=== PATIENT | male | born 1950 | race Caucasian/White ===

== ENCOUNTER 2017-09-28 11:55 | Observation (INO) | payer OTHER ==
[~2017-09-28] VITALS: Ht 167.6 cm; Wt 70.5 kg
[~2017-09-28 11:55] MED LIST: LISI10TA PO; SIMV20TA2 PO
--- NOTE | 2017-09-28 13:21 | DIAGNOSTIC IMAGING REPORT ---
SINGLE VIEW CHEST CLINICAL HISTORY: Dyspnea. FINDINGS: An AP, portable, upright chest radiograph is obtained. No prior studies are available for comparison at the time of dictation. The examination is degraded by portable technique and patient rotation. The cardiomediastinal silhouette is unremarkable. There is mild bibasilar atelectasis. No airspace consolidation or large pleural effusion is identified. No pneumothorax is seen. The bony thorax is grossly intact. IMPRESSION: No acute cardiopulmonary abnormality. Electronically signed by: Abhilash Paz M.D. 09/28/2017 1:20 PM Dictated Date/Time: 09/28/2017 1:19 PM
[2017-09-28 13:25] LABS: BASO % 0.3 %; BASO ABS # 0.03 K/uL (0-0.2); EOS ABS # 0.09 K/uL (0-0.5); HEMOGLOBIN 15.9 g/dL (14.0-18.0); IG# 0.03 K/uL (0.00-0.02); LYMPH % 15.1 %; LYMPH ABS # 1.33 K/uL (1.2-3.4); MEAN CORPUSCULAR HEMOGLOBIN 31.5 pg (25-34); MEAN CORPUSCULAR HGB CONC 33.1 g/dl (32-36); MEAN PLATELET VOLUME 10.2 fL (7.4-10.4); MONO % 5.3 %; MONO ABS # 0.47 K/uL (0.11-0.59); NEUT ABS # 6.88 K/uL (1.4-6.5); PLATELET COUNT 187 K/uL (130-400); RED CELL DISTRIBUTION WIDTH CV 13.7 % (11.5-14.5); RED CELL DISTRIBUTION WIDTH SD 46.8 fL (36.4-46.3); WHITE BLOOD COUNT 8.83 K/uL (4.8-10.8)
[2017-09-28 13:46] LABS: BLOOD UREA NITROGEN 23 mg/dl (7-18); CALCIUM 9.3 mg/dl (8.5-10.1); CARBON DIOXIDE 23 mmol/L (21-32); CREATININE 1.01 mg/dl (0.60-1.40); GLUCOSE 114 mg/dl (70-99); POTASSIUM 4.4 mmol/L (3.5-5.1); SODIUM 140 mmol/L (136-145)
--- NOTE | 2017-09-28 13:49 | EMERGENCY ROOM VISIT NOTE ---
History Report prepared by Roberta: Izabela Bridges Under the Supervision of: Dr. Abhilash Preciado M.D. First contact with patient: 12:39 Chief Complaint: SHORTNESS OF BREATH Stated Complaint: SOB History of Present Illness The patient is a 67 year old male who presents to the Emergency Room with complaints of intermittent shortness of breath with exertion that started several days ago. The patient reports he usually feels better a few seconds after resting but this morning he notes it took closer to a few minutes. He states he noticed he was anxious and had cramping in his hands this morning. He reports he feels like his heart rate has increased but does not feel like it is "racing". 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 He notes he was in the ED ten years ago for similar symptoms but his results were negative. He states he was told he had acid reflux. He reports he noticed heart burn this morning after eating breakfast but it went away after he burped. He states he went to the basement 30 minutes later and noticed he was short of breath when coming back up the stairs. He denies chest pain, sweating, or nausea. The patient states he normally jogs about 1 mile every morning and has noticed he has been more short of breath the last few weeks. He denies any recent travels or surgeries. He states he was diagnosed with bladder cancer in 2013 but reports it is well resolved. He notes he gets a CT for the bladder cancer every year and his most recent one was 3 weeks ago. He denies a history of blood clots in his lungs or legs. Source of History: patient Onset: several days ago Timing: intermittent Modifying Factors (Worsening): exertion Associated Symptoms: No diaphoresis, No chest pain, No nausea Review of Systems See HPI for pertinent positives & negatives. A total of 10 systems reviewed and were otherwise negative. Past Medical & Surgical Medical Problems: (1) Bladder cancer (2) Dyslipidemia (3) HTN (hypertension) Bladder cancer. Social History Smoking Status: Never Smoker Current/Historical Medications Scheduled Aspirin (Aspirin EC Low Dose), 81 MG PO DAILY Lisinopril (Prinivil), 10 MG PO DAILY Simvastatin (Zocor), 20 MG PO QPM Allergies Coded Allergies: Scallop (Verified Adverse Reaction, Severe, n/v, 07/22/14) Physical Exam Vital Signs Date Time Temp Pulse Resp B/P (MAP) Pulse Ox O2 Delivery O2 Flow Rate FiO2 09/28/17 15:00 97 20 95 Room Air 09/28/17 13:42 93 Room Air 09/28/17 13:42 86 14 138/88 96 Room Air 09/28/17 13:41 Room Air 09/28/17 13:37 94 09/28/17 11:58 36.3 98 18 165/92 96 Room Air Physical Exam GENERAL: Patient is in no acute distress. HEENT: No acute trauma, normocephalic atraumatic, mucous membranes moist, no nasal congestion, no scleral icterus. NECK: No stridor, no adenopathy, no meningismus, trachea is midline. LUNGS: Clear to auscultation bilaterally, no wheeze, no rhonchi, breath sounds equal. HEART: Without murmurs gallops or rubs, regular rate and rhythm. ABDOMEN: Soft, nontender, bowel sounds positive, no hernias, no peritonitis. EXTREMITIES: No cyanosis or edema, full range of motion of all the joints without pain or difficulty, no signs for acute trauma. NEUROLOGIC: Oriented x 3, no acute motor or sensory deficits, no focal weakness. SKIN: No rash, no jaundice, no diaphoresis. Medical Decision & Procedures ER Provider Diagnostic Interpretation: Radiology results as stated below per my review and radiologist interpretation: SINGLE VIEW CHEST CLINICAL HISTORY: Dyspnea. FINDINGS: An AP, portable, upright chest radiograph is obtained. No prior studies are available for comparison at the time of dictation. The examination is degraded by portable technique and patient rotation. The cardiomediastinal silhouette is unremarkable. There is mild bibasilar atelectasis. No airspace consolidation or large pleural effusion is identified. No pneumothorax is seen. The bony thorax is grossly intact. IMPRESSION: No acute cardiopulmonary abnormality. Electronically signed by: Abhilash Paz M.D. 09/28/2017 1:20 PM Dictated Date/Time: 09/28/2017 1:19 PM Laboratory Results 09/28/17 13:10 Red Blood Count 5.05, Mean Corpuscular Volume 95.0, Mean Corpuscular Hemoglobin 31.5, Mean Corpuscular Hemoglobin Concent 33.1, Mean Platelet Volume 10.2, Neutrophils (%) (Auto) 78.0, Lymphocytes (%) (Auto) 15.1, Monocytes (%) (Auto) 5.3, Eosinophils (%) (Auto) 1.0, Basophils (%) (Auto) 0.3, Neutrophils # (Auto) 6.88, Lymphocytes # (Auto) 1.33, Monocytes # (Auto) 0.47, Eosinophils # (Auto) 0.09, Basophils # (Auto) 0.03 09/28/17 13:10 Test 09/28/17 13:10 White Blood Count 8.83 K/uL (4.8-10.8) Red Blood Count 5.05 M/uL (4.7-6.1) Hemoglobin 15.9 g/dL (14.0-18.0) Hematocrit 48.0 % (42-52) Mean Corpuscular Volume 95.0 fL (80-100) Mean Corpuscular Hemoglobin 31.5 pg (25-34) Mean Corpuscular Hemoglobin Concent 33.1 g/dl (32-36) Platelet Count 187 K/uL (130-400) Mean Platelet Volume 10.2 fL (7.4-10.4) Neutrophils (%) (Auto) 78.0 % Lymphocytes (%) (Auto) 15.1 % Monocytes (%) (Auto) 5.3 % Eosinophils (%) (Auto) 1.0 % Basophils (%) (Auto) 0.3 % Neutrophils # (Auto) 6.88 K/uL (1.4-6.5) Lymphocytes # (Auto) 1.33 K/uL (1.2-3.4) Monocytes # (Auto) 0.47 K/uL (0.11-0.59) Eosinophils # (Auto) 0.09 K/uL (0-0.5) Basophils # (Auto) 0.03 K/uL (0-0.2) RDW Standard Deviation 46.8 fL (36.4-46.3) RDW Coefficient of Variation 13.7 % (11.5-14.5) Immature Granulocyte % (Auto) 0.3 % Immature Granulocyte # (Auto) 0.03 K/uL (0.00-0.02) Prothrombin Time 10.0 SECONDS (9.0-12.0) Prothromb Time International Ratio 1.0 (0.9-1.1) Activated Partial Thromboplast Time 24.0 SECONDS (21.0-31.0) Partial Thromboplastin Ratio 0.9 D-Dimer 350 ug/L FEU (0-500) Anion Gap 6.0 mmol/L (3-11) Est Creatinine Clear Calc Drug Dose 64.9 ml/min Estimated GFR () 89.4 Estimated GFR (Non- 77.1 BUN/Creatinine Ratio 22.9 (10-20) Calcium Level 9.3 mg/dl (8.5-10.1) Magnesium Level 2.3 mg/dl (1.8-2.4) Thyroid Stimulating Hormone (TSH) 2.660 uIu/ml (0.300-4.500) Laboratory results reviewed by me. ECG Per My Interpretation Indication: SOB/dyspnea Rate (beats per minute): 84 Rhythm: normal sinus Findings: no acute ischemic change, other (no PVC) ED Course 1239: The patient was evaluated in room B12A. A complete history and physical exam was performed. 1420: Discussed the patient's case with [facility] The patient will be evaluated for further management. Medical Decision Differential Diagnosis: Angina, MO, pneumonia, anemia, electrolyte imbalance, infection, bronchitis, anxiety. There is no leukocytosis or concerning anemia. No significant electrolyte abnormality, kidney failure. The patient appears to be in a euthyroid state. EKG shows a sinus rhythm, no acute ischemia. Cardiac enzyme testing 1 is not consistent with acute cardiac injury. Chest film does not show mediastinal widening, pneumonia or pneumothorax. D-dimer testing is negative. With a negative d-dimer and my low suspicion for PE, I will stop the workup for this diagnosis. Patient presents with exertional dyspnea. Things are worsening for him. He does have some cardiac risk factors. I do think a hospital stay would be warranted. Patient did take aspirin already prior to arrival, no additional aspirin administered. I spoke to the patient and case management. The on-call hospitalist was consulted. Medication Reconcilliation Current Medication List: was personally reviewed by me Blood Pressure Screening Patient's blood pressure: Elevated blood pressure (monitor by hospitalist) Consults Time Called: 1415 Consulting Physician: [facility] Returned Call: 1420 Discussed the patient's case with [facility]. The patient will be evaluated for further management. Impression Primary Impression: Shortness of breath Additional Impression: Exertional dyspnea Scribe Attestation The scribe's documentation has been prepared under my direction and personally reviewed by me in its entirety. I confirm that the note above accurately reflects all work, treatment, procedures, and medical decision making performed by me. Departure Information Dispostion Being Evaluated By Hospitalist Referrals Carmelo Boss D.O. (PCP) Patient Instructions [facility] Problem Qualifiers
--- NOTE | 2017-09-28 14:20 | History and Physical ---
History & Physical Date & Time of Service: Sep 28, 2017 at 14:19 Chief Complaint: SOB Primary Care Physician: Zhang Bell M.D. History of Present Illness Source: patient Patient is a 67-year-old male with past medical history of hypertension, hyperlipidemia, Bladder Cancer, GERD and other problems presents with history of worsening dyspnea on exertion especially since 3-4 days duration. Patient usually Jogs 1-2 miles every day but lately he gets tired even before completing one mile. This morning patient noticed to have cramping in his left arm and jaw which lasted for about few minutes. He has also noted to have dizziness with position since last few days. Reports taking 2 flights of stairs is causing shortness of breath which is very unusual for him. SOB improves with rest. Admits to taking Aspirin prior to ED visit. Last Stress test was in 2001 which was negative. He was told to have possible GERD on prior admission and he currently doesn't take any meds for GERD but has heartburn after eating breakfast this morning which improved after burping. Denies any history of chest pain, orthopnea, PND, pedal edema, diaphoresis, cough, fever, chills, headache, weakness, nausea, vomiting, abdominal pain, diarrhea, dysuria, recent change in medications. Past Medical/Surgical History HTN, HLP, Bladder Cancer Family History Father: CHF Mother:Afib Social History Smoking Status: Never Smoker Alcohol Use: socially Drug Use: none Allergies Coded Allergies: Scallop (Verified Adverse Reaction, Severe, n/v, 07/22/14) Home Medications Scheduled Aspirin (Aspirin EC Low Dose), 81 MG PO DAILY Lisinopril (Prinivil), 10 MG PO DAILY Simvastatin (Zocor), 20 MG PO QPM Review of Systems See HPI for pertinent positives & negatives. A total of 10 systems reviewed and were otherwise negative. Physical Exam Vital Signs Date Time Temp Pulse Resp B/P (MAP) Pulse Ox O2 Delivery O2 Flow Rate FiO2 09/28/17 13:42 93 Room Air 09/28/17 13:42 86 14 138/88 96 Room Air 09/28/17 13:41 Room Air 09/28/17 13:37 94 09/28/17 11:58 36.3 98 18 165/92 96 Room Air General Appearance: WD/WN, no apparent distress Head: normocephalic, atraumatic Eyes: normal inspection, PERRL, EOMI ENT: normal ENT inspection, hearing grossly normal Neck: supple, trachea midline Respiratory/Chest: chest non-tender, lungs clear, normal breath sounds, no respiratory distress, no accessory muscle use Cardiovascular: regular rate, rhythm, no edema, no murmur Abdomen/GI: normal bowel sounds, non tender, soft Back: normal inspection Extremities/Musculoskelatal: normal inspection, no pedal edema 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, no motor/sensory deficits, alert, normal mood/affect, oriented x 3 Skin: normal color, warm/dry Diagnostics Laboratory Results Results Past 24 Hours Test 09/28/17 13:10 Range/Units White Blood Count 8.83 4.8-10.8 K/uL Red Blood Count 5.05 4.7-6.1 M/uL Hemoglobin 15.9 14.0-18.0 g/dL Hematocrit 48.0 42-52 % Mean Corpuscular Volume 95.0 80-100 fL Mean Corpuscular Hemoglobin 31.5 25-34 pg Mean Corpuscular Hemoglobin Concent 33.1 32-36 g/dl Platelet Count 187 130-400 K/uL Mean Platelet Volume 10.2 7.4-10.4 fL Neutrophils (%) (Auto) 78.0 % Lymphocytes (%) (Auto) 15.1 % Monocytes (%) (Auto) 5.3 % Eosinophils (%) (Auto) 1.0 % Basophils (%) (Auto) 0.3 % Neutrophils # (Auto) 6.88 1.4-6.5 K/uL Lymphocytes # (Auto) 1.33 1.2-3.4 K/uL Monocytes # (Auto) 0.47 0.11-0.59 K/uL Eosinophils # (Auto) 0.09 0-0.5 K/uL Basophils # (Auto) 0.03 0-0.2 K/uL RDW Standard Deviation 46.8 36.4-46.3 fL RDW Coefficient of Variation 13.7 11.5-14.5 % Immature Granulocyte % (Auto) 0.3 % Immature Granulocyte # (Auto) 0.03 0.00-0.02 K/uL D-Dimer 350 0-500 ug/L FEU Sodium Level 140 136-145 mmol/L Potassium Level 4.4 3.5-5.1 mmol/L Chloride Level 111 98-107 mmol/L Carbon Dioxide Level 23 21-32 mmol/L Anion Gap 6.0 3-11 mmol/L Blood Urea Nitrogen 23 7-18 mg/dl Creatinine 1.01 0.60-1.40 mg/dl Est Creatinine Clear Calc Drug Dose 64.9 ml/min Estimated GFR () 89.4 Estimated GFR (Non- 77.1 BUN/Creatinine Ratio 22.9 10-20 Random Glucose 114 70-99 mg/dl Calcium Level 9.3 8.5-10.1 mg/dl Magnesium Level 2.3 1.8-2.4 mg/dl Troponin I < 0.015 0-0.045 ng/ml Thyroid Stimulating Hormone (TSH) 2.660 0.300-4.500 uIu/ml Diagnostic Radiology CXR: No acute cardiopulmonary abnormality. EKG EKG:Normal sinus rhythm, No signs of acute Ischemia on my Interpretation Impression Assessment and Plan Dyspnea on Exertion/Jaw Pain R/O ACS Risk factors: HTN, HLP Last Stress Test in 2001: Normal Initial troponin:Negative EKG shows:No signs of acute CXR: Unremarkable No wheezing on Exam, No H/O COPD/Asthma Trend serial cardiac enzymes Repeat EKG in AM, lipid panel Continue Aspirin, statins Oxygen PRN NPO after midnight for possible stress test Cardiology consulted TSH normal Hypertension Continue lisinopril Hyperlipidemia Continue Statins H/O Bladder Cancer S/P surgery and BCG Injections Follows with as outpatient He gets Cystoscopy every year GERD Not on meds at home Start PPI DVT Px: Lovenox SQ Code Status: Full Code Disposition: Observe in Tele Expect to discharge home when medically stable Resuscitation Status VTE Prophylaxis Will order VTE Prophylaxis: Yes
[2017-09-28] MEDS ORDERED: ONDANSETRON INJ 2 MG/ML 2 ML VIAL IV PRN (15:30)
[2017-09-28] MEDS ORDERED: ACETAMINOPHEN 325 MG TAB PO PRN (15:30)
[2017-09-28] MEDS ORDERED: NITROGLYCERIN 0.4 MG SL PER TAB CHARGE SL PRN (15:30)
[2017-09-28] MEDS ORDERED: PANTOprazole SOD 40 MG TAB PO STA (15:33)
[2017-09-28] MEDS ORDERED: ASPI-320 PO (15:38)
[2017-09-28 15:55] VITALS: O2SAT 94; Ht 167.6 cm; Wt 70.5 kg
[2017-09-28 16:13] VITALS: O2SAT 94
[2017-09-28 17:24] VITALS: BP 156/93; PULSE 82; TEMP 37; O2SAT 93
[2017-09-28 19:32] VITALS: BP 138/82; PULSE 84; TEMP 37.2; O2SAT 94
[2017-09-28] MEDS ORDERED: ENOXAPARIN 40 MG/0.4 ML SYR SC SCH (21:00)
[2017-09-28] MEDS ORDERED: SIMVASTATIN 20 MG TAB PO SCH (21:00)
[2017-09-28] MEDS ORDERED: SODIUM CHLORIDE 0.9% 1000ML 1,000 ML IV SCH (22:00)
[2017-09-28 23:57] VITALS: BP 115/90; PULSE 70; TEMP 37; O2SAT 97
[2017-09-29 05:24] VITALS: BP 128/84; PULSE 70; TEMP 36.7; O2SAT 96
[2017-09-29 07:03] LABS: HEMATOCRIT 45.5 % (42-52); HEMOGLOBIN 15.6 g/dL (14.0-18.0); MEAN CELL VOLUME 95.4 fL (80-100); MEAN CORPUSCULAR HEMOGLOBIN 32.7 pg (25-34); MEAN CORPUSCULAR HGB CONC 34.3 g/dl (32-36); MEAN PLATELET VOLUME 10.1 fL (7.4-10.4); PLATELET COUNT 171 K/uL (130-400); RED CELL DISTRIBUTION WIDTH CV 13.8 % (11.5-14.5); RED CELL DISTRIBUTION WIDTH SD 48.3 fL (36.4-46.3); WHITE BLOOD COUNT 8.08 K/uL (4.8-10.8)
[2017-09-29 07:09] VITALS: BP 121/80; PULSE 76; TEMP 36.8; O2SAT 96
[2017-09-29 07:42] LABS: BLOOD UREA NITROGEN 18 mg/dl (7-18); CALCIUM 8.2 mg/dl (8.5-10.1); CARBON DIOXIDE 26 mmol/L (21-32); CHOLESTEROL 167 mg/dl (0-200); CREATININE 0.98 mg/dl (0.60-1.40); GLUCOSE 94 mg/dl (70-99); LDL CHOLESTEROL CALCULATED 91 mg/dl; POTASSIUM 4.3 mmol/L (3.5-5.1); SODIUM 142 mmol/L (136-145)
[2017-09-29] MEDS ORDERED: PANTOprazole SOD 40 MG TAB PO SCH (09:00)
[2017-09-29] MEDS ORDERED: ASPIRIN 81 MG ECTAB PO SCH (09:00)
[2017-09-29] MEDS ORDERED: LISINOPRIL 10 MG TAB PO SCH (09:00)
--- NOTE | 2017-09-29 09:59 | Progress Note ---
Internal Med Progress Note Date of Service: Sep 29, 2017. Provider Documentation: SUBJECTIVE: Seen and examined at bedside Feels well today Denies chest pain, SOB, dizziness, nausea No complaints OBJECTIVE: Vital Signs-as noted below General Appearance: WD/WN, no apparent distress Head: normocephalic, atraumatic Eyes: normal inspection, PERRL, EOMI ENT: normal ENT inspection, hearing grossly normal Neck: supple, trachea midline Respiratory/Chest: chest non-tender, lungs clear, normal breath sounds, no respiratory distress, no accessory muscle use Cardiovascular: regular rate, rhythm, no edema, no murmur Abdomen/GI: normal bowel sounds, non tender, soft Back: normal inspection Extremities/Musculoskelatal: normal inspection, no pedal edema 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 ASSESSMENT & PLAN: Dyspnea on Exertion/Jaw Pain R/O ACS Risk factors: HTN, HLP Last Stress Test in 2001: Normal Troponin:Negative EKG shows:No signs of acute CXR: Unremarkable D-Dimer:Negative No wheezing on Exam, No H/O COPD/Asthma Continue Aspirin, statins Await for Cardiology Input ECHO:pending Hypertension Continue lisinopril Hyperlipidemia Continue Statins H/O Bladder Cancer S/P surgery and BCG Injections Follows with as outpatient He gets Cystoscopy every year GERD Not on meds at home continue PPI DVT Px: Lovenox SQ Code Status: Full Code Disposition: Observe in Tele Expect to discharge home when medically stable Vital Signs: Date Time Temp Pulse Resp B/P (MAP) Pulse Ox O2 Delivery O2 Flow Rate FiO2 09/29/17 07:09 36.8 76 17 121/80 (94) 96 Room Air 09/29/17 05:24 36.7 70 16 128/84 (99) 96 Room Air 09/28/17 23:57 37.0 70 17 115/90 (98) 97 Room Air 09/28/17 20:00 Room Air 09/28/17 19:32 37.2 84 16 138/82 (100) 94 Room Air 09/28/17 17:24 37.0 82 17 156/93 (114) 93 Room Air 09/28/17 17:20 Room Air 09/28/17 16:13 97 22 145/92 94 09/28/17 16:00 99 23 145/92 94 Room Air 09/28/17 15:55 94 Room Air 09/28/17 15:30 93 23 131/81 94 Room Air 09/28/17 15:00 97 20 95 Room Air 09/28/17 13:42 93 Room Air 09/28/17 13:42 86 14 138/88 96 Room Air 09/28/17 13:41 Room Air 09/28/17 13:37 94 09/28/17 11:58 36.3 98 18 165/92 96 Room Air Lab Results: Results Past 24 Hours Test 09/28/17 13:10 09/28/17 17:44 09/29/17 00:12 09/29/17 06:34 Range/Units White Blood Count 8.83 8.08 4.8-10.8 K/uL Red Blood Count 5.05 4.77 4.7-6.1 M/uL Hemoglobin 15.9 15.6 14.0-18.0 g/dL Hematocrit 48.0 45.5 42-52 % Mean Corpuscular Volume 95.0 95.4 80-100 fL Mean Corpuscular Hemoglobin 31.5 32.7 25-34 pg Mean Corpuscular Hemoglobin Concent 33.1 34.3 32-36 g/dl Platelet Count 187 171 130-400 K/uL Mean Platelet Volume 10.2 10.1 7.4-10.4 fL Neutrophils (%) (Auto) 78.0 % Lymphocytes (%) (Auto) 15.1 % Monocytes (%) (Auto) 5.3 % Eosinophils (%) (Auto) 1.0 % Basophils (%) (Auto) 0.3 % Neutrophils # (Auto) 6.88 1.4-6.5 K/uL Lymphocytes # (Auto) 1.33 1.2-3.4 K/uL Monocytes # (Auto) 0.47 0.11-0.59 K/uL Eosinophils # (Auto) 0.09 0-0.5 K/uL Basophils # (Auto) 0.03 0-0.2 K/uL RDW Standard Deviation 46.8 48.3 36.4-46.3 fL RDW Coefficient of Variation 13.7 13.8 11.5-14.5 % Immature Granulocyte % (Auto) 0.3 % Immature Granulocyte # (Auto) 0.03 0.00-0.02 K/uL Prothrombin Time 10.0 9.0-12.0 SECONDS Prothromb Time International Ratio 1.0 0.9-1.1 Activated Partial Thromboplast Time 24.0 21.0-31.0 SECONDS Partial Thromboplastin Ratio 0.9 D-Dimer 350 0-500 ug/L FEU Sodium Level 140 142 136-145 mmol/L Potassium Level 4.4 4.3 3.5-5.1 mmol/L Chloride Level 111 112 98-107 mmol/L Carbon Dioxide Level 23 26 21-32 mmol/L Anion Gap 6.0 4.0 3-11 mmol/L Blood Urea Nitrogen 23 18 7-18 mg/dl Creatinine 1.01 0.98 0.60-1.40 mg/dl Est Creatinine Clear Calc Drug Dose 64.9 66.9 ml/min Estimated GFR () 89.4 92.7 Estimated GFR (Non- 77.1 80.0 BUN/Creatinine Ratio 22.9 18.1 10-20 Random Glucose 114 94 70-99 mg/dl Calcium Level 9.3 8.2 8.5-10.1 mg/dl Magnesium Level 2.3 2.4 1.8-2.4 mg/dl Troponin I < 0.015 < 0.015 < 0.015 < 0.015 0-0.045 ng/ml Thyroid Stimulating Hormone (TSH) 2.660 0.300-4.500 uIu/ml Vitamin B12 Level 728 211-911 pg/mL Triglycerides Level 95 0-150 mg/dl Cholesterol Level 167 0-200 mg/dl HDL Cholesterol 57 mg/dl LDL Cholesterol, Calculated 91 mg/dl VLDL Cholesterol, Calculated 19 mg/dl Cholesterol/HDL Ratio 2.9
[2017-09-29 12:00] VITALS: BP 111/77; PULSE 78; TEMP 36.7; O2SAT 96
--- NOTE | 2017-09-29 12:10 | EXERCISE STRESS ECHO ---
*NOTICE TO RECEIVING REPUBLICAN AGENCY This information is strictly Confidential and protected under [place] law. [place] law prohibits you from making any further disclosure of this information unless further disclosure is expressly permitted by the written consent of the person to whom it pertains or is authorized by law. A general authorization for the release of medical or other information is not sufficient for this purpose. Hospital accepts no responsibility if the information is made available to any other person, INCLUDING THE PATIENT. Interpretation Summary * The stress echocardiogram is negative for inducible ischemia. * _ workload achieved. * -- Conclusions -- * There is a mildly accelerated heart rate response achieving target heart rate after 3 minutes of exertion but able to exercise for an additional 6 minutes and achieved greater than 100% age-predicted maximum heart rate without symptoms * Stress ECG: No ST changes. No arrhythmias. * Resting wall motion: Normal. Stress wall motion: Appropriate increase in Left ventricular systolic function and decrease in cavity size. No stress induced segmental wall motion abnormalities. * Left ventricular systolic function is normal. * Ejection Fraction = 65-70%. * There is moderate concentric left ventricular hypertrophy. * Aortic valve sclerosis mild, without significant aortic valvular stenosis. * Trace aortic regurgitation. * Borderline dilated ascending aorta. Procedure Details * ECHOEX, CPT #[id number] * ECHO DOPPLER, CPT #[id number] * ECHO COLOR FLOW, CPT #[id number] Left Ventricular Findings with Stress * Name: LAINE ROMERO Study Date: 09/29/2017 07:21 AM BP: 131/81 mmHg Patient Location: [facility] – [place]\S\E203\S\1 HR: 93 : 1950 (M/d/yyyy) Gender: Male Height: 66 in Age: 67 yrs Ethnicity: [place] Weight: 156 lb Ordering Physician: Jesús Hewitt Performed By: Gabriela Lugo RIN Reason For Study: CHEST PAIN BSA: 1.8 m2 Left Ventricle * The left ventricle is normal in size. * There is moderate concentric left ventricular hypertrophy. * Ejection Fraction = 65-70%. * Left ventricular systolic function is normal. * The left ventricular wall motion is normal at rest. * The left ventricular ejection fraction increases normally with stress. The left ventricular end-systolic cavity size reduces post-stress (normal response). The left ventricular wall motion with stress is normal. * Resting wall motion: Normal. Stress wall motion: Appropriate increase in Left ventricular systolic function and decrease in cavity size. No stress induced segmental wall motion abnormalities. Right Ventricle * The right ventricle is normal in size and function. Atria * The left atrial size is normal. * Right atrial size is normal. * No ASD detected; PFO is not assessed. Mitral Valve * The mitral valve is normal. * There is no mitral valve stenosis. * Significant mitral regurgitation is absent. Tricuspid Valve * The tricuspid valve anatomy is normal. * There is no tricuspid stenosis. * Significant tricuspid regurgitation is absent. * Doppler findings do not suggest pulmonary hypertension. Aortic Valve * The aortic valve is trileaflet. * Aortic valve sclerosis mild, without significant aortic valvular stenosis. * Trace aortic regurgitation. Pulmonic Valve * The pulmonary valve is not well seen, but the Doppler examination is normal without significant regurgitation or stenosis. Great Vessels * The aortic root is normal size. * Borderline dilated ascending aorta. Pericardium * There is no pericardial effusion. Stress Parameters * Normal baseline electrocardiogram. * There is a mildly accelerated heart rate response achieving target heart rate after 3 minutes of exertion but able to exercise for an additional 6 minutes and achieved greater than 100% age-predicted maximum heart rate without symptoms * Stress ECG: No ST changes. No arrhythmias. * The stress portion of this study was personally supervised by the undersigned interpreting physician. * Rest heart rate was '78' BPM. * Rest blood pressure was '130/82' * Maximum heart rate achieved was 164 bpm. * Maximum heart rate was 106 % of maximum age-predicted heart rate. * Maximum blood pressure was '179/92' * Total exercise time was '9:16' * Maximum exercise MET level achieved was '10.3' METS * Maximum treadmill speed was '4.20' miles per hour. * Maximum treadmill elevation was '16.00'% grade. * Exercise was terminated due to 'fatigue' * Normal blood pressure response to exercise. * Target heart rate achieved. Left Ventricular Findings with Stress * A complete two-dimensional transthoracic echocardiogram was performed (2D, M-mode, Doppler and color flow Doppler). Left Ventricular Diastolic Function * Grade I diastolic dysfunction, (abnormal relaxation pattern). MMode 2D Measurements and Calculations IVSd 1.6 cm IVSs 2.0 cm LVIDd 4.1 cm LVIDs 2.6 cm LVPWd 0.77 cm LVPWs 1.5 cm IVS/LVPW 2.1 FS 37.6 % EDV(Teich) 76.2 ml ESV(Teich) 24.3 ml EF(Teich) 68.2 % EDV(cubed) 71.3 ml ESV(cubed) 17.3 ml EF(cubed) 75.7 % % IVS thick 24.1 % % LVPW thick 90.9 % LV mass(C)d 173.8 grams LV mass(C)dI 96.6 grams/m\S\2 LV mass(C)s 171.9 grams LV mass(C)sI 95.5 grams/m\S\2 SV(Teich) 51.9 ml SI(Teich) 28.9 ml/m\S\2 SV(cubed) 54.0 ml SI(cubed) 30.0 ml/m\S\2 ACS 1.2 cm LA dimension 3.5 cm asc Aorta Diam 4.2 cm LVOT diam 1.8 cm LVOT area 2.6 cm\S\2 LVAd ap4 24.1 cm\S\2 LVLd ap4 7.8 cm EDV(MOD-sp4) 61.0 ml EDV(sp4-el) 63.2 ml LVAs ap4 11.9 cm\S\2 LVLs ap4 6.4 cm ESV(MOD-sp4) 18.0 ml ESV(sp4-el) 18.8 ml EF(MOD-sp4) 70.6 % EF(sp4-el) 70.2 % LVAd ap2 29.6 cm\S\2 LVLd ap2 7.4 cm EDV(MOD-sp2) 95.9 ml EDV(sp2-el) 100.3 ml LVAs ap2 13.3 cm\S\2 LVLs ap2 5.5 cm ESV(MOD-sp2) 26.4 ml ESV(sp2-el) 27.3 ml EF(MOD-sp2) 72.5 % EF(sp2-el) 72.8 % LVLd %diff -5.24 % EDV(MOD-bp) 78.8 ml LVLs %diff -17.14 % ESV(MOD-bp) 23.5 ml EF(MOD-bp) 70.2 % SV(MOD-sp4) 43.1 ml SI(MOD-sp4) 23.9 ml/m\S\2 SV(MOD-sp2) 69.6 ml SI(MOD-sp2) 38.6 ml/m\S\2 SV(MOD-bp) 55.3 ml SI(MOD-bp) 30.7 ml/m\S\2 SV(sp4-el) 44.4 ml SI(sp4-el) 24.6 ml/m\S\2 SV(sp2-el) 73.0 ml SI(sp2-el) 40.6 ml/m\S\2 Doppler Measurements and Calculations MV E max farshad 73.9 cm/sec MV A max farshad 106.8 cm/sec MV E/A 0.69 MV dec time 0.25 sec Ao V2 max 94.0 cm/sec Ao max PG 3.5 mmHg Ao max PG (full) 0.99 mmHg MANJULA(V,A) 2.2 cm\S\2 MANJULA(V,D) 2.2 cm\S\2 AI max farshad 364.2 cm/sec AI max PG 53.1 mmHg AI dec slope 203.6 cm/sec\S\2 AI P1/2t 523.9 msec LV V1 max PG 2.5 mmHg LV V1 max 79.8 cm/sec PA V2 max 63.1 cm/sec PA max PG 1.6 mmHg PI end-d farshad 110.4 cm/sec TR max farshad 224.8 cm/sec
--- NOTE | 2017-09-29 12:32 | CARDIOLOGY CONSULTATION ---
DATE OF CONSULTATION: 09/29/2017 REFERRING PHYSICIAN: Jesús Hewitt MD INDICATIONS: Chest pain. HISTORY OF PRESENT ILLNESS: The patient is a 67-year-old male whose history is notable for hypertension, hyperlipidemia, prior bladder carcinoma, gastroesophageal reflux disease, who notes prior evaluation for atypical chest discomfort in the remote past with negative evaluation in 2001. The patient presents now, however, noting increasing exertional chest tightness and indigestion as well as jaw pain which resulted in ER presentation. He feels that indigestion may have been a concern, though symptoms appear slightly more pronounced recently. He usually has been active walking, exercising, working with good tolerance, but symptoms have progressed limiting activities. He took an aspirin prior to ER presentation on 09/28/2017. Initial enzymes and EKGs are unrevealing. He is referred now for further evaluation. On full review of systems, he denies history of TIA or stroke. Notes no history of renal or hepatic disease. Notes no history of rheumatic fever, scarlet fever. Does note indigestion at times. Notes no orthopnea, PND or peripheral edema. Notes no tachypalpitations, syncope, or near syncope. He has no personal history of coronary disease or congestive heart failure. Notes no unexplained fevers or infections. Appetite and weight have been stable. Negative review of systems are noted otherwise. ALLERGIES: SCALLOPS. MEDICATIONS PRIOR TO HOSPITALIZATION: Aspirin 81 mg per day, lisinopril 10 mg per day, and simvastatin 20 mg p.o. every day. PAST SURGICAL HISTORY: Notable for remote inguinal herniorrhaphy, cystostomy and prostate biopsy. FAMILY HISTORY: Notable for hypertension, congestive heart failure in an elderly father at age 87. SOCIAL HISTORY: The patient is a retired data management engineer. He is a nonsmoker, rare alcohol user. He remains very physically active. PHYSICAL EXAMINATION: VITAL SIGNS: Heart rate 76, blood pressure is 121/80. HEENT: Normocephalic, atraumatic. Nares without discharge. Throat was clear. NECK: Supple without thyromegaly, lymphadenopathy, JVD or bruit. LUNGS: Clear to auscultation. CARDIOVASCULAR: Regular. Normal S1, S2. No murmur, gallop or rub. ABDOMEN: Soft, nontender. EXTREMITIES: Without cyanosis or clubbing. There is no peripheral edema. There are intact distal pulses. NEUROLOGIC: The patient is intact. DATA: White cell count is 8.0, platelet count is 171, hemoglobin is 15.6, sodium is 142, potassium is 4.3, chloride is 112, bicarbonate is 26, BUN is 18, creatinine 0.98. Troponins are negative x4. TSH was 2.6. Cholesterol was 167 with an LDL of 91 and HDL of 51. Chest x-ray revealed no infiltrate. EKG serially demonstrated normal tracings. IMPRESSION: A 67-year-old male with recent change in symptom pattern with exertional chest tightness, possible jaw and shoulder pain with some atypical features. Initial enzymes and EKGs do not reflect acute injury or infarct. RECOMMENDATIONS: The patient referred for stress echocardiography for delineation of cardiac risk, to be performed later this morning. No changes otherwise made until study performed.
--- NOTE | 2017-09-29 13:26 | PROGRESS NOTE ---
DATE: 09/29/2017 Please see full consultation from earlier today. The patient was referred and underwent stress echocardiography. The patient was exercising to 9 minutes and 15 seconds on a Elias protocol reflecting high workload tolerance. There were no symptoms of chest pain, shortness of breath, or jaw pain during the procedure. Resting and stress EKG was normal. Study was notable for a mildly accelerated heart rate response, with normal blood pressure response. LV systolic function was normal at rest and stress. There was moderate left ventricular hypertrophy, mild aortic sclerosis, and borderline ascending aortic dilatation, no other findings. Findings do not suggest acute cardiac cause of the patient's symptoms. Would continue risk factor modification. Follow up with primary care physician.
--- NOTE | 2017-09-29 14:26 | Progress Note ---
Internal Med Progress Note Date of Service: Sep 29, 2017. Provider Documentation: SUBJECTIVE: Seen and examined at bedside Feels well today Denies chest pain, SOB, dizziness, nausea No complaints OBJECTIVE: Vital Signs-as noted below General Appearance: WD/WN, no apparent distress Head: normocephalic, atraumatic Eyes: normal inspection, PERRL, EOMI ENT: normal ENT inspection, hearing grossly normal Neck: supple, trachea midline Respiratory/Chest: chest non-tender, lungs clear, normal breath sounds, no respiratory distress, no accessory muscle use Cardiovascular: regular rate, rhythm, no edema, no murmur Abdomen/GI: normal bowel sounds, non tender, soft Back: normal inspection Extremities/Musculoskelatal: normal inspection, no pedal edema 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 ASSESSMENT & PLAN: Dyspnea on Exertion/Jaw Pain R/O ACS Risk factors: HTN, HLP Last Stress Test in 2001: Normal Troponin:Negative EKG shows:No signs of acute CXR: Unremarkable D-Dimer:Negative No wheezing on Exam, No H/O COPD/Asthma Continue Aspirin, statins Await for Cardiology Input Stress Test: Negative Hypertension Continue lisinopril Hyperlipidemia Continue Statins H/O Bladder Cancer S/P surgery and BCG Injections Follows with as outpatient He gets Cystoscopy every year GERD Not on meds at home continue PPI DVT Px: Lovenox SQ Code Status: Full Code Disposition: Observe in Tele Expect to discharge home when medically stable PROCEDURES: ECHO; * There is a mildly accelerated heart rate response achieving target heart rate after 3 minutes of exertion but able to exercise for an additional 6 minutes and achieved greater than 100% age-predicted maximum heart rate without symptoms * Stress ECG: No ST changes. No arrhythmias. * Resting wall motion: Normal. Stress wall motion: Appropriate increase in Left ventricular systolic function and decrease in cavity size. No stress induced segmental wall motion abnormalities. * Left ventricular systolic function is normal. * Ejection Fraction = 65-70%. * There is moderate concentric left ventricular hypertrophy. * Aortic valve sclerosis mild, without significant aortic valvular stenosis. * Trace aortic regurgitation. * Borderline dilated ascending aorta. Vital Signs: Date Time Temp Pulse Resp B/P (MAP) Pulse Ox O2 Delivery O2 Flow Rate FiO2 7/8/18 12:00 36.7 78 18 111/77 (88) 96 Room Air 09/29/17 07:09 36.8 76 17 121/80 (94) 96 Room Air 09/29/17 05:24 36.7 70 16 128/84 (99) 96 Room Air 09/28/17 23:57 37.0 70 17 115/90 (98) 97 Room Air 09/28/17 20:00 Room Air 09/28/17 19:32 37.2 84 16 138/82 (100) 94 Room Air 09/28/17 17:24 37.0 82 17 156/93 (114) 93 Room Air 09/28/17 17:20 Room Air 09/28/17 16:13 97 22 145/92 94 09/28/17 16:00 99 23 145/92 94 Room Air 09/28/17 15:55 94 Room Air 09/28/17 15:30 93 23 131/81 94 Room Air 09/28/17 15:00 97 20 95 Room Air Lab Results: Results Past 24 Hours Test 09/28/17 17:44 09/29/17 00:12 09/29/17 06:34 Range/Units Troponin I < 0.015 < 0.015 < 0.015 0-0.045 ng/ml Vitamin B12 Level 728 211-911 pg/mL White Blood Count 8.08 4.8-10.8 K/uL Red Blood Count 4.77 4.7-6.1 M/uL Hemoglobin 15.6 14.0-18.0 g/dL Hematocrit 45.5 42-52 % Mean Corpuscular Volume 95.4 80-100 fL Mean Corpuscular Hemoglobin 32.7 25-34 pg Mean Corpuscular Hemoglobin Concent 34.3 32-36 g/dl RDW Standard Deviation 48.3 36.4-46.3 fL RDW Coefficient of Variation 13.8 11.5-14.5 % Platelet Count 171 130-400 K/uL Mean Platelet Volume 10.1 7.4-10.4 fL Sodium Level 142 136-145 mmol/L Potassium Level 4.3 3.5-5.1 mmol/L Chloride Level 112 98-107 mmol/L Carbon Dioxide Level 26 21-32 mmol/L Anion Gap 4.0 3-11 mmol/L Blood Urea Nitrogen 18 7-18 mg/dl Creatinine 0.98 0.60-1.40 mg/dl Est Creatinine Clear Calc Drug Dose 66.9 ml/min Estimated GFR () 92.7 Estimated GFR (Non- 80.0 BUN/Creatinine Ratio 18.1 10-20 Random Glucose 94 70-99 mg/dl Calcium Level 8.2 8.5-10.1 mg/dl Magnesium Level 2.4 1.8-2.4 mg/dl Triglycerides Level 95 0-150 mg/dl Cholesterol Level 167 0-200 mg/dl HDL Cholesterol 57 mg/dl LDL Cholesterol, Calculated 91 mg/dl VLDL Cholesterol, Calculated 19 mg/dl Cholesterol/HDL Ratio 2.9
[2017-09-29] MEDS ORDERED: PANT1TAB4 PO (14:29)
--- NOTE | 2017-09-29 14:30 | Discharge Summary ---
Discharge Summary Date of Service Sep 29, 2017. Discharge Summary Admission Date: Sep 28, 2017 at 15:26 Discharge Date: Sep 29, 2017 Discharge Disposition: Home Principal Diagnosis: Exertional Dyspnea Procedures: CXR: No acute cardiopulmonary abnormality. ECHO; * There is a mildly accelerated heart rate response achieving target heart rate after 3 minutes of exertion but able to exercise for an additional 6 minutes and achieved greater than 100% age-predicted maximum heart rate without symptoms * Stress ECG: No ST changes. No arrhythmias. * Resting wall motion: Normal. Stress wall motion: Appropriate increase in Left ventricular systolic function and decrease in cavity size. No stress induced segmental wall motion abnormalities. * Left ventricular systolic function is normal. * Ejection Fraction = 65-70%. * There is moderate concentric left ventricular hypertrophy. * Aortic valve sclerosis mild, without significant aortic valvular stenosis. * Trace aortic regurgitation. * Borderline dilated ascending aorta. Consultations: Cardiology Pending Studies/Follow-Up: Follow up with your PCP on 10/04/17 at 12:25pm Seek immediate medical attention if your symptoms reoccur or worsen Medication Reconciliation New Medications: Pantoprazole (Pantoprazole Sodium) 40 Mg Tab 40 MG PO QAM for 30 Days, #30 TAB Continued Medications: Aspirin (Aspirin EC Low Dose) 81 Mg Ectab 81 MG PO DAILY Lisinopril (Prinivil) 10 Mg Tab 10 MG PO DAILY, TAB Simvastatin (Zocor) 20 Mg Tab 20 MG PO QPM, TAB Admission Information HPI (per Admitting provider): Patient is a 67-year-old male with past medical history of hypertension, hyperlipidemia, Bladder Cancer, GERD and other problems presents with history of worsening dyspnea on exertion especially since 3-4 days duration. Patient usually Jogs 1-2 miles every day but lately he gets tired even before completing one mile. This morning patient noticed to have cramping in his left arm and jaw which lasted for about few minutes. He has also noted to have dizziness with position since last few days. Reports taking 2 flights of stairs is causing shortness of breath which is very unusual for him. SOB improves with rest. Admits to taking Aspirin prior to ED visit. Last Stress test was in 2001 which was negative. He was told to have possible GERD on prior admission and he currently doesn't take any meds for GERD but has heartburn after eating breakfast this morning which improved after burping. Denies any history of chest pain, orthopnea, PND, pedal edema, diaphoresis, cough, fever, chills, headache, weakness, nausea, vomiting, abdominal pain, diarrhea, dysuria, recent change in medications. 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, no motor/sensory deficits, alert , normal mood/affect, oriented x 3 Skin: normal color, warm/dry Hospital Course Dyspnea on Exertion/Jaw Pain R/O ACS Risk factors: HTN, HLP Last Stress Test in 2001: Normal Troponin:Negative EKG shows:No signs of acute CXR: Unremarkable D-Dimer:Negative No wheezing on Exam, No H/O COPD/Asthma Continue Aspirin, statins Await for Cardiology Input Stress Test: Negative Hypertension Continue lisinopril Hyperlipidemia Continue Statins H/O Bladder Cancer S/P surgery and BCG Injections Follows with as outpatient He gets Cystoscopy every year GERD Not on meds at home continue PPI DVT Px: Lovenox SQ Code Status: Full Code Disposition: Observe in Tele Expect to discharge home when medically stable PROCEDURES: ECHO; * There is a mildly accelerated heart rate response achieving target heart rate after 3 minutes of exertion but able to exercise for an additional 6 minutes and achieved greater than 100% age-predicted maximum heart rate without symptoms * Stress ECG: No ST changes. No arrhythmias. * Resting wall motion: Normal. Stress wall motion: Appropriate increase in Left ventricular systolic function and decrease in cavity size. No stress induced segmental wall motion abnormalities. * Left ventricular systolic function is normal. * Ejection Fraction = 65-70%. * There is moderate concentric left ventricular hypertrophy. * Aortic valve sclerosis mild, without significant aortic valvular stenosis. * Trace aortic regurgitation. * Borderline dilated ascending aorta. Total time spent on discharge = This includes examination of the patient, discharge planning, medication reconciliation, and communication with other providers. Discharge Instructions Discharge Instructions Date of Service Sep 29, 2017. Admission Reason for Admission: Exertional Dyspnea Discharge Discharge Diagnosis / Problem: Exertional Dyspnea Discharge Goals Goal(s): Decrease discomfort, Improve function Activity Recommendations Activity Limitations: resume your previous activity Exercise/Sports Limitations: gradually increase as tolerated . Instructions / Follow-Up Instructions / Follow-Up Follow up with your PCP on 10/04/17 at 12:25pm Seek immediate medical attention if your symptoms reoccur or worsen Current Hospital Diet Patient's current hospital diet: AHA Diet (Heart Healthy) Discharge Diet Recommended Diet: AHA Diet (Heart Healthy) Pending Studies Studies pending at discharge: no Laboratory Results Lipid Panel Test 09/29/17 06:34 Range/Units Triglycerides Level 95 0-150 mg/dl Cholesterol Level 167 0-200 mg/dl HDL Cholesterol 57 mg/dl Cholesterol/HDL Ratio 2.9 LDL Cholesterol, Calculated 91 mg/dl Medical Emergencies . Who to Call and When: Medical Emergencies: If at any time you feel your situation is an emergency, please call 911 immediately. . Non-Emergent Contact Non-Emergency issues call your: Primary Care Provider Call Non-Emergent contact if: you have a fever, your pain is not controlled, your pain is worsening, your pain is unusual for you, your pain is concerning you, you have any medication questions Seek immediate medical attention if your symptoms reoccur or worsen . . "Provider Documentation" section prepared by Jesús Hewitt. .
[2017-09-29 15:26] VITALS: BP 127/88; PULSE 70; TEMP 36.8; O2SAT 96
[2017-09-29 15:28] VITALS: BP 127/88; PULSE 70; TEMP 36.8; O2SAT 96
[2017-09-29] MEDS: IV FLUIDS COMPLETED PRN ×2 (15:54→15:56)
== END 2017-09-29 16:15 | disposition home or self-care (01) ==
LOC: C.EDB 11:56 → C.2E 15:26 → ENRESERV 15:56
PROVIDERS: ADMIT Internal Medicine; ATTEND Internal Medicine
DX: R06.00 Dyspnea, unspecified (principal); R68.84 Jaw pain; Z79.82 Long term (current) use of aspirin; Z79.899 Other long term (current) drug therapy; I10 Essential (primary) hypertension; E78.5 Hyperlipidemia, unspecified; Z85.51 Personal history of malignant neoplasm of bladder; Z91.013 Allergy to seafood; Z82.49 Family history of ischemic heart disease and other diseases of the circulatory system